=== PATIENT | female | born 1985 | race Hispanic/Latino ===

== ENCOUNTER 2019-11-03 10:05 | Emergency (ER) | payer BC, OTHER ==
[~2019-11-03] VITALS: Ht 154.9 cm; Wt 61.2 kg
[2019-11-03] MEDS ORDERED: LIDOCAINE 1% VIAL ONE (10:16)
[2019-11-03 10:22] VITALS: BP 123/81
[2019-11-03] MEDS ORDERED: ZOFRAN ODT ONE (10:28)
--- NOTE | 2019-11-03 10:41 | ER.PDOC ---
General Chief Complaint: Requesting Medical Care Stated Complaint: LEFT HAND INJURY Time seen by MD: 10:13 Source: patient Exam Limitations: no limitations History of Present Illness Initial Comments Patient accidentally sliced the thenar eminence of her left hand with a knife this morning. Occurred: just prior to arrival Where: work Severity: moderate Context: laceration Location of Injury: (L) hand Past Medical History Medical History: no pertinent history (last tetanus unknown) Review of Systems Constitutional: no symptoms reported EENTM: no symptoms reported Respiratory: no symptoms reported Cardiovascular: no symptoms reported Gastrointestinal: no symptoms reported Musculoskeletal: no symptoms reported Skin: see HPI Physical Exam General Appearance: Alert, Anxious Hand: see diagram 1 - 4 cm flap lac, bleeding controlled Neuro: sensation nml, motor nml Vascular: no vascular compromise Tendons: tendon function nml Forearm/Elbow/Arm: uninjured above wrist Head/ENT: nml inspection Neck/Back: nml inspection Resp/CVS: no resp distress, lungs clear, heart sounds nml, reg. rate & rhythm ED LACERATION WOUND REPAIR # of Wounds/Lacerations Presen: 1 Wound Location & Length (Requi: 4 cm flap lac left thenar eminence Wound Length (cm): 4 Anesthesia type: local Anesthesia: 1% Lidocaine Wound's Depth, Shape: flap, subcutaneous Wound Explored: clean Wound Repaired With: sutures Suture Size/Type: 4:0, nylon Suture Style: interupted Number of Sutures: 8 Layer Closure?: No Retention sutures placed: No Sterile Dressing Applied?: Yes Sling Applied?: No Departure Time of Disposition: 10:46 Disposition: 01 HOME, SELF-CARE Impression: Primary Impression: Laceration of hand Condition: Improved Patient Instructions: Sutured Wound Care Referrals: PCP,UNKNOWN (PCP) PRIMARY CARE PROVIDER Additional Instructions: Sutures out 14 days. Apply triple antibiotic ointment daily. Keep wound clean and dry. Return to ER if any signs of infection or for any emergent concerns. Alternate Tylenol and Motrin per package instructions every 4 hours as needed for pain. Duration or Time Spent with Pa: 30 min Problem Qualifiers Primary Impression: Laceration of hand Encounter type: initial encounter Foreign body presence: without foreign body Laterality: left Qualified Codes: S61.412A - Laceration without foreign body of left hand, initial encounter NEMO MARCOS DO Nov 03, 2019 10:41
[2019-11-03] MEDS ORDERED: TRIPLE ANTIBIOTIC OINTMENT TP STA (10:42)
[2019-11-03] MEDS ORDERED: TRIPLE ANTIBIOTIC OINTMENT TP ONE (10:44)
[2019-11-03] MEDS ORDERED: ADACEL VIAL IM ONE ×2 (10:45→11:00)
--- NOTE | 2019-11-03 10:52 | NUR ---
DRESSING NEOSPORAN APPLIED TO SUTURE SITE, OPTI FOAM PLACED OVER LACERATION, WRAPPED IN KERLEX, AND SECURED WITH COBAN. VERBAL AND WRITTEN INSTRUCTIONS GIVEN ON SUTURE CARE.
[2019-11-03 10:55] VITALS: BP 130/60
== END 2019-11-03 11:00 | disposition home or self-care (01) ==
LOC: ER 10:05
DX: S61.412A Laceration without foreign body of left hand, initial encounter (principal); W26.0XXA Contact with knife, initial encounter; Y93.89 Activity, other specified; Y92.89 Other specified places as the place of occurrence of the external cause; Y99.8 Other external cause status
CPT/HCPCS: 12002; 90471; 90715; 99283; J2001